=== PATIENT | female | born 1975 | race African-American/Black ===

== ENCOUNTER 2016-06-02 11:28 | Emergency (ER) | payer BC ==
[~2016-06-02 11:28] MED LIST: ADVIL PO
== END 2016-06-02 11:35 | disposition home or self-care (01) ==
LOC: ER 11:28
DX: M54.41 Lumbago with sciatica, right side (principal); Z88.5 Allergy status to narcotic agent; Z79.899 Other long term (current) drug therapy
CPT/HCPCS: 96372; 99283; J1885